=== PATIENT | female | born 1970 | race Caucasian/White ===

== ENCOUNTER → 2018-08-14 | Outpatient (CLI) | payer OTHER ==
[~2018-08-14] MED LIST: ACETAMINOPHEN650 M5 PO; ALPRAZOLAM; AMBIEN 10 MG TA10 MG PO; ATIVAN0.5 MG; AUGMENTIN 875875 M1 PO; AUGMENTIN 875875 MG PO; BREO ELLIPTA 21 EACH; COLACE100 MG PO; DESYREL50 MG PO; LISINOPRIL PO; LITHIUM CARBON300 M3 PO; NORCO 5-325 TA1 EAC1 PO; NORCO 5-325 TA1 EACH; PROZAC; SYNTHROID300 MCG PO; VENTOLIN HFA INH8 GM; VICODIN 5-5001 EACH PO; XANAX XR1 MG PO
== END ==
LOC: MRI 10:37
DX: M47.22 Other spondylosis with radiculopathy, cervical region (principal); M50.121 Cervical disc disorder at C4-C5 level with radiculopathy; R60.0 Localized edema

== ENCOUNTER → 2019-09-14 | Outpatient (CLI) | payer OTHER ==
[~2019-09-14] MED LIST changes: +CEFUROXIME500 MG PO; +MOBIC15 MG PO; +PREDNISONE 10 M10 MG PO; +PROAIR HFA8.5 GM PO; +PROMETH-CODEIN 65 ML PO; +SYNTHROID125 MC1 PO; -SYNTHROID300 MCG PO; +TRAMADOL 50 MG50 MG PO
--- NOTE | 2019-09-14 14:23 | 2DMMODE ---
[facility] [address] [place] [address] 2 D/M-MODE ECHOCARDIOGRAM Name: BENJAMIN ARIAS Room #: REG [facility] EnriqueLuis Enrique#: [id number] Admission: 09/14/19 Attend Phys: Chano Oneil Discharge: Date of : 72 Report #: [id number] THIS REPORT FOR: //name// APPROVED REPORT Study performed: 09/14/2019 12:59:56 EXAM: Comprehensive 2D, Doppler, and color-flow Echocardiogram Patient Location: Out-Patient Status: routine BSA: 1.69 HR: 71 bpm BP: 120/70 mmHg Rhythm: NSR Other Information Study Quality: Good Indications SVT 2D Dimensions RVDd: 30.46 mm IVSd: 8.47 (7-11mm) LVOT Diam: 17.63 (18-24mm) LVDd: 46.62 mm PWd: 7.54 (7-11mm) Ascending Ao: 26.12 (22-36mm) LVDs: 34.97 (25-40mm) Aortic Root: 24.97 mm Volumes Left Atrial Volume (Systole) Single Plane 4CH: 48.17 mL Single Plane 2CH: 28.17 mL LA ESV Index: 25.00 mL/m2 Aortic Valve AoV Peak Alejandro.: 1.37 m/s AO Peak Gr.: 7.48 mmHg LVOT Max P.13 mmHg LVOT Max V: 1.13 m/s TEJ Vmax: 2.02 cm2 Mitral Valve E/A Ratio: 1.4 MV Decel. Time: 211.08 ms MV E Max Alejandro.: 0.95 m/s [facility] [address] [place] [address] 2 D/M-MODE ECHOCARDIOGRAM Name: BENJAMIN ARIAS Room #: REG Sherri#: [id number] Admission: 09/14/19 Attend Phys: Chano Oneil Discharge: Date of : 72 Report #: [id number] MV A Alejandro.: 0.70 m/s MV PHT: 61.21 ms IVRT: 65.74 ms Pulmonary Valve PV Peak Alejandro.: 0.74 m/s PV Peak Gr.: 2.19 mmHg Pulmonary Vein P Vein S: 0.59 m/s P Vein A: 0.27 m/s P Vein D: 0.43 m/s P Vein A Dur.: 101.5 msec P Vein S/D Ratio: 1.37 Tricuspid Valve TR Peak Alejandro.: 2.12 m/s RAP Estimate: 5.00 mmHg TR Peak Gr.: 17.92 mmHg PA Pressure: 23.00 mmHg Left Ventricle The left ventricle is normal size. There is normal left ventricular wall thickness. The left ventricular systolic function is normal. The left ventricular ejection fraction is within the normal range. LVEF is 55%. The left ventricular diastolic function is normal. Right Ventricle The right ventricle is normal size. The right ventricular systolic function is normal. Atria The left atrium size is normal. The right atrium size is normal. Aortic Valve The aortic valve is normal in structure. No aortic regurgitation is present. There is no aortic valvular stenosis. Mitral Valve The mitral valve is normal in structure. Mild mitral regurgitation. No evidence of mitral valve stenosis. Tricuspid Valve The tricuspid valve is normal in structure. Mild tricuspid regurgitation. Estimated PAP is 23mmHg. Pulmonic Valve The pulmonary valve is normal in structure. Trace pulmonic regurgitation. [facility] [address] [place] [address] 2 D/M-MODE ECHOCARDIOGRAM Name: BENJAMIN ARIAS SONYA Room #: REG [facility]ENTERBrannon.#: [id number] Admission: 09/14/19 Attend Phys: [facility]ano [facility] Discharge: Date of : 72 Report #: [id number] Great Vessels The aortic root is normal in size. The ascending aorta is normal in size. IVC is normal in size and collapses >50% with inspiration. Pericardium There is no pericardial effusion. <Conclusion> The left ventricle is normal size. There is normal left ventricular wall thickness. The left ventricular systolic function is normal. The left ventricular diastolic function is normal. The right ventricle is normal size. The left atrium size is normal. The aortic valve is normal in structure. Mild mitral regurgitation. Mild tricuspid regurgitation. Estimated PAP is 23mmHg. <ELECTRONICALLY SIGNED> By: Norberto Lee MD 09/14/19 1423 [id number] Norberto Lee MD /INF
== END ==
LOC: CV 10:33
DX: I08.1 Rheumatic disorders of both mitral and tricuspid valves (principal); I47.1 Supraventricular tachycardia

== ENCOUNTER → 2019-10-08 | Outpatient (CLI) | payer OTHER ==
[~2019-10-08] VITALS: Ht 167.6 cm; Wt 64.3 kg
[2019-10-08 07:09] VITALS: BP 113/72
[2019-10-08 07:33] LABS: ABSOLUTE NEUTROPHILS 4.1 thou/uL (1.4-8.2); BASOPHILS 0.7 % (0.0-2.0); HEMOGLOBIN 13.2 gm/dL (12.0-15.0); LYMPHOCYTES 26.7 % (24.0-44.0); MCH 31.3 pg (26.0-34.0); MCV 94.9 fL (80.0-100.0); MONOCYTES 5.7 % (1.0-8.0); PLATELET COUNT 292 thou/uL (150-400); POLYS 60.9 % (36.0-66.0); RBC 4.22 mil/uL (4.20-5.00); RDW 13.3 % (10.5-14.5); WBC 6.7 thou/uL (4.0-11.0)
[2019-10-08 07:42] LABS: CALCIUM 9.6 mg/dL (8.5-10.1); CREATININE 0.8 mg/dL (0.6-1.0); POTASSIUM 3.9 mmol/L (3.5-5.1)
[2019-10-08 07:45] LABS: APTT 29.5 Seconds (24.5-32.8); PROTIME 10.5 Seconds (9.3-11.4)
[2019-10-08 07:47] LABS: ALBUMIN 3.4 g/dL (3.4-5.0); TOTAL BILIRUBIN 0.2 mg/dL (<0.1-1.0); TOTAL PROTEIN 7.3 g/dL (6.4-8.2)
--- NOTE | 2019-10-14 13:41 | P ---
[facility] [place] [address] PROCEDURE REPORT Name: BENJAMIN ARIAS Room #: REG IWONAWhitney Polanco#: [id number] Admission: 10/08/19 Attend Phys: Chano Oneil MD Discharge: Date of : 72 Report #: [id number] THIS REPORT FOR: //name// CC: Gerardo Oneil DATE OF SERVICE: 10/08/2019 SVT ABLATION PREOPERATIVE DIAGNOSIS: Supraventricular tachycardia. POSTOPERATIVE DIAGNOSIS: Typical atrioventricular bautista reentrant tachycardia. PROCEDURES PERFORMED: 1. SVT ablation, CPT code 29054. 2. 3D mapping with left atrial pacing and recording, CPT code 85250. 3. Program stimulation and pacing after IV drug infusion, CPT code 66756. 4. 3D mapping, CPT code 77455. HISTORY OF PRESENT ILLNESS: The patient is a 48-year-old with history of recurrent palpitations with near syncopal episodes who recently wore quality assurance monitor final showing episodes of supraventricular tachycardia. She is here for EP study and ablation. ANESTHESIA: The patient underwent MAC anesthesia, no anesthesia related complications. DESCRIPTION OF PROCEDURE: The patient underwent informed consent. We discussed the details of the procedure including the risks, which include but not limited to bleeding, infection, vascular damage, cardiac perforation and pneumothorax. She understood these risks and is willing to proceed. The patient was brought to the EP laboratory in fasting and sedated state, prepped and draped in a sterile fashion. I obtained access to the bilateral femoral veins, injected lidocaine at the bilateral groins, placed two 6-[place] short sheaths and in the right femoral vein and a 6 and 7-[place] short sheath in the left femoral vein using the modified Seldinger technique. Next, under fluoroscopy, a Decapolar was paced in the coronary sinus for pacing and recording and 3 Decapolar catheters were placed at the HRA, His and RV positions. The basic EP study was now performed. At baseline, the patient was in sinus rhythm with sinus cycle length of 820 milliseconds, OH interval 170 milliseconds, QRS duration 70 milliseconds, QT interval 45 milliseconds, AH interval 85 milliseconds, and HV interval 45 milliseconds. Atrial burst pacing [facility] [address] [place] [address] PROCEDURE REPORT Name: BENJAMIN ARIAS Room #: REG JAMAL Polanco#: [id number] Admission: 10/08/19 Attend Phys: Chano Oneil MD Discharge: Date of : 72 Report #: [id number] was performed and AV block was noted at 310 milliseconds. With atrial pacing, it appeared that the patient had a nice long AH interval consistent with a slow pathway. Next, single atrial extrastimuli were delivered and atrial ERP was noted at 280 milliseconds at a [address] cycle length. Double atrial extrastimuli were also delivered and no SVT was induced. Next, ventricular pacing was performed and VA block was noted at 430 milliseconds. Next, I gave a single ventricular extrastimuli and at 400 milliseconds at [address] cycle length, the patient went into SVT with a cycle length of 500 milliseconds, septal VA time of 35 milliseconds and after about 10 seconds, this was terminated within consistent with typical AV bautista reentrant tachycardia. Next with straight ventricular burst pacing again the patient went into typical AV bautista reentrant tachycardia and this time, I was able to perform entrainment multiple times with a VAHV response consistent with typical AV bautista reentrant tachycardia. I then started on isoproterenol infusion at 2 mcg per minute. Additional testing was performed. Now with atrial burst pacing, the patient would go into SVT again and a VAHV response again was consistent with AV bautista reentrant tachycardia. As such, isoproterenol was turned off and the patient was prepped for ablation. 3D MAPPING AND ABLATION: Next, I removed my HRA catheter and sheath and exchanged this for an SR0 and a 4-mm [employer] Means ablation catheter. I created a detailed 3D geometry of the His region, slow pathway region. The site where I ablated was 18 mm from the site of the His. I came on an ablation and immediately we had nice slow junctionals. However, after 5-10 junctionals, the patient would have evidence of retrograde VA block for 1 beat. I did come off and I did test conduction it was normal. Again, I performed several ablation lesions and I would come off when I would see loss of VA conduction. One lesion I did was slightly anterior to where I was getting the junctionals and I did 60 seconds of burning at this site with no junctionals. At this point, I decided to go ahead and perform testing with plans to use cryoablation if the patient remained inducible. POST-ABLATION TESTING: Post-ablation, the patient was placed immediately on isoproterenol and I performed aggressive atrial burst pacing and atrial extrastimuli. AV block was noted at 240 milliseconds. Atrial ERP was noted at 180 milliseconds at a [address] cycle length. There was no SVT nor were there any AV bautista echoes. The ventricular burst pacing was performed and VA block was noted to be less than 250 milliseconds, ERP was noted at 200 milliseconds at [address] cycle length. Isoproterenol was decreased to 1 mcg per minute and we continued testing on this and could not induce SVT and then isoproterenol was turned off and we tested off of isoproterenol and it appeared that the patient was now non-inducible. As such, I decided that we did not need to perform any cryoablation as she was rendered noninducible despite only having 5 short ablation lesions. Post-ablation, she remained in sinus rhythm with sinus cycle length of 755 milliseconds, OH interval 170 milliseconds, QRS duration 85 milliseconds, QT interval 385 [facility] [address] [place] [address] PROCEDURE REPORT Name: BENJAMIN ARIAS Room #: REG JAMAL Polanco#: [id number] Admission: 10/08/19 Attend Phys: Chano Oneil MD Discharge: Date of : 72 Report #: [id number] milliseconds. As such, all catheters and sheaths were pulled. Hemostasis was obtained and the patient awoke neurologically and hemodynamically intact. No complications and no significant bleeding. CONCLUSIONS: 1. Successful ablation of typical AV bautista reentrant tachycardia. 2. Normal SA bautista function. 3. Normal AV bautista function. 4. Normal His-Purkinje function. 5. No other inducible arrhythmias on or off isoproterenol. <ELECTRONICALLY SIGNED> By: Chano Oneil MD 10/14/19 1341 [id number] Chano Oneil MD /nt
== END | disposition home or self-care (01) ==
LOC: CATH 06:35
PROVIDERS: Internal Medicine Cardiovascular Disease
DX: I47.1 Supraventricular tachycardia (principal); I10 Essential (primary) hypertension; F31.9 Bipolar disorder, unspecified; E07.9 Disorder of thyroid, unspecified; J45.909 Unspecified asthma, uncomplicated; Z98.890 Other specified postprocedural states; Z87.01 Personal history of pneumonia (recurrent); Z79.899 Other long term (current) drug therapy; Z88.8 Allergy status to other drugs, medicaments and biological substances; Z79.01 Long term (current) use of anticoagulants
CPT/HCPCS: 62110; 62900; 70005

== ENCOUNTER → 2020-05-19 | Outpatient (CLI) | payer OTHER | LOC: LAB 14:28 | PROVIDERS: ATTEND Nurse Practitioner | DX: R05 Cough (principal); R50.9 Fever, unspecified; R52 Pain, unspecified; Z20.828 Contact with and (suspected) exposure to other viral communicable diseases ==